=== PATIENT | female | born 1980 | race Caucasian/White ===

== ENCOUNTER 2020-07-15 07:02 | Outpatient (CLI) | payer BC ==
--- NOTE | 2020-07-15 07:44 | ULT ---
Right upper quadrant ultrasound: 07/15/2020 COMPARISON: None HISTORY: Abnormal liver function tests TECHNIQUE: Multiplanar grayscale sonographic imaging of the right upper quadrant provided. FINDINGS: Visualized pancreas unremarkable. No focal liver lesion or intrahepatic biliary dilatation. No gallstones or gallbladder wall thickening. No pericholecystic fluid. The common bile duct measures 3 mm, within normal limits. Right kidney measures 9 cm in craniocaudal dimension and demonstrates no stone, hydronephrosis, or ma ss. The radiologic technology instructor reports a negative Mast's sign. IMPRESSION: No acute findings.
== END 2020-07-15 07:03 | disposition home or self-care (01) ==
LOC: BICULT 07:02
PROVIDERS: ATTEND Internal Medicine Hematology & Oncology
DX: C50.212 Malignant neoplasm of upper-inner quadrant of left female breast (principal); R94.5 Abnormal results of liver function studies
CPT/HCPCS: 76705

== ENCOUNTER 2020-09-14 12:28 | Outpatient (CLI) | payer BC | END 2020-09-14 12:29 | disposition home or self-care (01) | LOC: ULT 12:28 | PROVIDERS: ATTEND Internal Medicine Hematology & Oncology | DX: Z51.11 Encounter for antineoplastic chemotherapy (principal); C50.212 Malignant neoplasm of upper-inner quadrant of left female breast; Z79.899 Other long term (current) drug therapy | CPT/HCPCS: 93306 ==

== ENCOUNTER 2021-01-06 | Outpatient (CLI) | payer BC | END 2021-01-06 08:28 | disposition home or self-care (01) ==

== ENCOUNTER 2021-03-31 12:02 | Outpatient (CLI) | payer BC | END 2021-03-31 12:03 | disposition home or self-care (01) | LOC: ULT 12:02 | PROVIDERS: ATTEND Internal Medicine Hematology & Oncology | DX: Z51.11 Encounter for antineoplastic chemotherapy (principal); C50.212 Malignant neoplasm of upper-inner quadrant of left female breast; I07.0 Rheumatic tricuspid stenosis; Z79.899 Other long term (current) drug therapy | CPT/HCPCS: 93306 ==

== ENCOUNTER 2025-03-18 14:46 | Outpatient (CLI) | payer BC | END 2025-03-18 14:47 | disposition home or self-care (01) | LOC: BICMAMMO 14:46 | PROVIDERS: ATTEND Family Medicine | DX: Z78.0 Asymptomatic menopausal state (principal); M85.88 Other specified disorders of bone density and structure, other site | CPT/HCPCS: 77080 ==